=== PATIENT | female | born 1945 | race Caucasian/White ===

== ENCOUNTER 2018-10-14 12:26 | Emergency (ER) | payer OTHER ==
[~2018-10-14] VITALS: Ht 172.7 cm; Wt 65.8 kg
[2018-10-14 12:27] VITALS: BP 128/76
--- NOTE | 2018-10-14 12:30 | NUR ---
73 YO FEMALE BIB EMS FROM [facility] FOR ABSCESS ON RIGHT BUTTOCK X 3-4 DAYS. PT IS AAOX4, VSS AT THSI TIME, BED DOWN, BEDRAIL UP X 1, ER MD AWARE AND NOTIFIED OF PT STATUS.
[2018-10-14] MEDS: LIDOCAINE 1% ***ER ONLY *** 10 MG/ML VIAL INJ ONE (12:44)
--- NOTE | 2018-10-14 12:45 | NUR ---
lidocaine at bedside for dr. rodriguez to administer
[2018-10-14] MEDS ORDERED: LIDOCAINE MPF 1% - 5 mL VIAL 10 ML ONE (12:50)
[2018-10-14] MEDS ORDERED: DULO30EC PO (13:01)
[2018-10-14] MEDS ORDERED: ZYL300 PO (13:01)
[2018-10-14] MEDS ORDERED: MULT1SGL58 PO (13:01)
[2018-10-14] MEDS ORDERED: TRAM50TA1 PO (13:01)
[2018-10-14] MEDS ORDERED: FAMO-90 PO (13:01)
[2018-10-14] MEDS ORDERED: MESA800T PO (13:01)
[2018-10-14] MEDS ORDERED: TRAZ-343 PO (13:01)
[2018-10-14] MEDS ORDERED: HYDR-5122 PO (13:01)
[2018-10-14] MEDS ORDERED: DOCU-299 PO (13:01)
[2018-10-14] MEDS ORDERED: CYCL10TA13 PO (13:01)
[2018-10-14] MEDS ORDERED: SYN.1 PO (13:01)
[2018-10-14] MEDS ORDERED: ASCO500T45 PO (13:01)
[2018-10-14] MEDS ORDERED: GABA300C PO (13:01)
[2018-10-14] MEDS ORDERED: DIT5 PO (13:01)
--- NOTE | 2018-10-14 15:00 | NUR ---
Patient being evaluated by dr. rodriguez at bedside.
[2018-10-14 17:02] VITALS: BP 125/73
--- NOTE | 2018-10-14 17:02 | NUR ---
Patient discharged with v/s stable. Written and verbal after care instructions given and explained. Patient alert, oriented and verbalized understanding of instructions. Wheel Chair Assisted with to intermediate. All questions addressed prior to discharge. ID band removed. Patient advised to follow up with PMD. Rx of keflex given. Patient educated on indication of medication including possible reaction and side effects. Opportunity to ask questions provided and answered.
== END 2018-10-14 17:02 | disposition home or self-care (01) ==
LOC: MED 12:26
DX: L02.31 Cutaneous abscess of buttock (principal); F17.210 Nicotine dependence, cigarettes, uncomplicated; Z79.1 Long term (current) use of non-steroidal anti-inflammatories (NSAID); Z79.891 Long term (current) use of opiate analgesic; Z79.899 Other long term (current) drug therapy; Z90.49 Acquired absence of other specified parts of digestive tract; Z90.89 Acquired absence of other organs; Z98.890 Other specified postprocedural states; Z88.2 Allergy status to sulfonamides
CPT/HCPCS: 10060; 99283; J2001